=== PATIENT | male | born 1955 | race Hispanic/Latino ===

== ENCOUNTER → 2020-09-03 | Outpatient (CLI) | payer OTHER | END | disposition home or self-care (01) | LOC: SHCH 12:40 | PROVIDERS: ATTEND Internal Medicine Cardiovascular Disease | DX: I10 Essential (primary) hypertension (principal); R06.00 Dyspnea, unspecified | CPT/HCPCS: 93306; 93356 ==

== ENCOUNTER 2022-06-03 20:57 | Inpatient (IN) | payer OTHER ==
[~2022-06-03] VITALS: Ht 172.7 cm; Wt 156.4 kg
[2022-06-03 21:52] LABS: BASOPHILS % (AUTO) 0.7 % (0.0-5.0); EOSINOPHILS % (AUTO) 4.1 % (0.0-8.0); HEMATOCRIT 48.4 % (42-54); LYMPHOCYTES % (AUTO) 16.4 % (21.0-51.0); MEAN CORPUSCULAR HEMOGLOBIN 31.3 pg (27.0-33.0); MEAN CORPUSCULAR HGB CONC 32.2 g/dL (32.0-36.0); MONOCYTES % (AUTO) 6.1 % (3.0-13.0); NEUTROPHILS % (AUTO) 72.2 % (40.0-77.0); PLATELET COUNT (AUTO) 124 K/uL (130-400); RED BLOOD CELL COUNT(AUTO) 4.99 MIL/uL (4.50-6.20); RED CELL DISTRIBUTION WIDTH 13.3 % (11.0-15.5); WHITE BLOOD COUNT (AUTO) 8.5 K/uL (4.8-10.8)
[2022-06-03 22:02] LABS: PROTHROMBIN TIME 10.9 SEC (9.6-11.6)
[2022-06-03 22:04] LABS: PARTIAL THROMBOPLASTIN TIME 28.5 SEC (26.3-35.5)
[2022-06-03 22:05] LABS: CREATININE 1.2 mg/dL (0.5-1.5); POTASSIUM 4.3 mmol/L (3.5-5.1)
[2022-06-03 22:09] LABS: ALBUMIN 3.8 g/dL (3.5-5.0); TOTAL PROTEIN, SERUM 7.4 g/dL (6.0-8.3); URIC ACID 6.7 mg/dL (2.6-7.2)
[2022-06-03 22:15] LABS: B-TYPE NATRIURETIC PEPTIDE 25 pg/mL (0-100)
[2022-06-03 23:50] VITALS: BP 148/83
[2022-06-04] VITALS (7 sets, daily range): BP systolic 118–156; BP diastolic 71–92
[2022-06-04] MEDS ORDERED: AMLO-257 PO (00:33)
[2022-06-04] MEDS ORDERED: OMEP20CA12 PO (00:33)
[2022-06-04] MEDS ORDERED: FLUT1AER IH (00:33)
[2022-06-04] MEDS ORDERED: PIOG15TA66 PO (00:33)
[2022-06-04] MEDS ORDERED: AMIL5TAB8 PO (00:33)
[2022-06-04] MEDS ORDERED: CELE200 PO (00:33)
[2022-06-04] MEDS ORDERED: METF-526 PO (00:33)
[2022-06-04] MEDS ORDERED: MULT-1203 PO (00:33)
[2022-06-04] MEDS ORDERED: TAMS-1 PO (00:33)
[2022-06-04] MEDS ORDERED: GABA100C PO (00:33)
[2022-06-04] MEDS ORDERED: METO25TA6 PO (00:33)
[2022-06-04] MEDS ORDERED: MONT-46 PO (00:33)
[2022-06-04] MEDS ORDERED: VITA-395 PO (00:33)
[2022-06-04] MEDS ORDERED: DULA0.75 SQ (00:33)
[2022-06-04 06:04] LABS: CHOLESTEROL 142 mg/dL (<200); HDL CHOLESTEROL 36 mg/dL (29-71); LDL DIRECT 91 mg/dL (0-99); TRIGLYCERIDES 134 mg/dL (30-200)
[2022-06-04] MEDS ORDERED: FLUT16H NASAL (06:31)
[2022-06-04] MEDS ORDERED: METFORMIN HCL 500 MG TAB.SR.24H PO SCH (08:00)
[2022-06-04] MEDS: AMLODIPINE 5 MG TAB PO SCH (08:56)
[2022-06-04] MEDS: METOPROLOL TARTRATE 25 MG TAB PO SCH ×2 (08:56→19:33)
[2022-06-04] MEDS: GABAPENTIN 100 MG CAPSULE PO SCH ×2 (08:56→19:33)
[2022-06-04] MEDS: PIOGLITAZONE 15MG TAB PO SCH (08:57)
[2022-06-04] MEDS ORDERED: AMILORIDE 5MG TAB PO SCH (09:00)
[2022-06-04] MEDS ORDERED: MAGNESIUM 2GM PREMIX 50ML 50 ML IV PRN (16:30)
[2022-06-04] MEDS: INSULIN HUMULIN R 100 UNIT/ML 3ML SQ SCH ×2 (16:30→19:45)
[2022-06-04] MEDS ORDERED: GLUCAGON 1MG KIT 1 MG ML IM PRN (16:30)
[2022-06-04] MEDS ORDERED: LIDOCAINE HCL-MPF 1% 2ML VIAL IV PRN (16:30)
[2022-06-04] MEDS ORDERED: POTASSIUM CHLORIDE 20MEQ/100ML 100 ML IV PRN (16:30)
[2022-06-04] MEDS ORDERED: DEXTROSE 50%-WATER 50 ML DISP.SYRIN IV PRN (16:30)
[2022-06-04] MEDS ORDERED: ONDANSETRON 4MG INJ IVP PRN (16:30)
[2022-06-04] MEDS ORDERED: POTASSIUM CHLORIDE 10% ELIXIR 20 MEQ/15 ML UDCUP PO PRN (16:30)
[2022-06-04] MEDS ORDERED: ACETAMINOPHEN 325 MG TAB PO PRN (16:30)
[2022-06-04] MEDS ORDERED: ENOXAPARIN SODIUM 40 MG/0.4 ML SYRINGE SQ SCH (16:30)
[2022-06-04] MEDS ORDERED: KCL 20 MEQ ERTAB PO PRN (16:30)
[2022-06-04 16:34] LABS: HEMOGLOBIN A1C 7.4 % (4.0-6.0)
[2022-06-04] MEDS: FUROSEMIDE 20MG VIAL IV SCH (18:29)
[2022-06-04] MEDS ORDERED: MONTELUKAST SODIUM 10 MG TAB ONE (19:18)
[2022-06-04] MEDS: FAMOTIDINE 20MG TAB PO SCH (19:33)
[2022-06-04] MEDS: MONTELUKAST SODIUM 10 MG TAB PO SCH (19:33)
[2022-06-05 03:52] VITALS: BP 125/77
[2022-06-05] MEDS: FUROSEMIDE 20MG VIAL IV SCH (04:30)
[2022-06-05] MEDS: INSULIN HUMULIN R 100 UNIT/ML 3ML SQ SCH ×4 (05:18→19:59)
[2022-06-05 08:00] VITALS: BP_SYST 126; BP_SYST 149; BP_DIAS 66; BP_DIAS 78
[2022-06-05] MEDS: FLUTICASONE/VILANTEROL 1 EACH AER.POW.BA IH SCH (08:41)
[2022-06-05] MEDS: FLUTICASONE PROPIONATE 50MCG/SPRAY 16 GM BOTTLE EN SCH (08:41)
[2022-06-05] MEDS: METOPROLOL TARTRATE 25 MG TAB PO SCH ×2 (08:50→19:56)
[2022-06-05] MEDS: TAMSULOSIN HCL 0.4 MG CAP.ER.24H PO SCH (08:55)
[2022-06-05] MEDS: PIOGLITAZONE 15MG TAB PO SCH (08:55)
[2022-06-05] MEDS: AMLODIPINE 5 MG TAB PO SCH (08:56)
[2022-06-05] MEDS: FAMOTIDINE 20MG TAB PO SCH ×2 (08:56→19:57)
[2022-06-05] MEDS: VITAMIN E 400 UNIT CAPSULE PO SCH (08:56)
[2022-06-05] MEDS: GABAPENTIN 100 MG CAPSULE PO SCH ×2 (08:56→19:57)
[2022-06-05] MEDS: MULTIVITAMIN TABLET PO SCH (08:56)
[2022-06-05] MEDS ORDERED: AMLODIPINE 5 MG TAB PO SCH (09:00)
[2022-06-05] MEDS: ENOXAPARIN SODIUM 40 MG/0.4 ML SYRINGE SQ SCH (09:00)
[2022-06-05] MEDS ORDERED: AMILORIDE 5MG TAB PO SCH (09:00)
[2022-06-05 12:00] VITALS: BP 113/68
[2022-06-05] MEDS ORDERED: IOHEXOL 350 MG/ML 100ML INFUS..BTL IV ONE (15:23)
[2022-06-05 16:00] VITALS: BP 131/67
[2022-06-05] MEDS: MONTELUKAST SODIUM 10 MG TAB PO SCH (19:57)
[2022-06-05 20:34] VITALS: BP 144/74
[2022-06-06] VITALS (7 sets, daily range): BP systolic 123–150; BP diastolic 59–90
[2022-06-06] MEDS: INSULIN HUMULIN R 100 UNIT/ML 3ML SQ SCH ×4 (05:37→20:21)
[2022-06-06] MEDS: MULTIVITAMIN TABLET PO SCH (08:29)
[2022-06-06] MEDS: FLUTICASONE PROPIONATE 50MCG/SPRAY 16 GM BOTTLE EN SCH (08:29)
[2022-06-06] MEDS: TAMSULOSIN HCL 0.4 MG CAP.ER.24H PO SCH (08:30)
[2022-06-06] MEDS: VITAMIN E 400 UNIT CAPSULE PO SCH (08:30)
[2022-06-06] MEDS: FLUTICASONE/VILANTEROL 1 EACH AER.POW.BA IH SCH (08:30)
[2022-06-06] MEDS: AMLODIPINE 5 MG TAB PO SCH (08:31)
[2022-06-06] MEDS: FAMOTIDINE 20MG TAB PO SCH ×2 (08:31→19:38)
[2022-06-06] MEDS: METOPROLOL TARTRATE 25 MG TAB PO SCH ×2 (08:31→19:38)
[2022-06-06] MEDS: GABAPENTIN 100 MG CAPSULE PO SCH ×2 (08:31→19:38)
[2022-06-06] MEDS: PIOGLITAZONE 15MG TAB PO SCH (08:32)
[2022-06-06] MEDS: ENOXAPARIN SODIUM 40 MG/0.4 ML SYRINGE SQ SCH (09:00)
[2022-06-06] MEDS: MONTELUKAST SODIUM 10 MG TAB PO SCH (19:38)
[2022-06-07 03:46] VITALS: BP 125/90
[2022-06-07] MEDS: INSULIN HUMULIN R 100 UNIT/ML 3ML SQ SCH ×4 (05:38→20:35)
[2022-06-07 08:00] VITALS: BP 154/93
[2022-06-07] MEDS: FLUTICASONE PROPIONATE 50MCG/SPRAY 16 GM BOTTLE EN SCH (08:21)
[2022-06-07] MEDS: FLUTICASONE/VILANTEROL 1 EACH AER.POW.BA IH SCH (08:21)
[2022-06-07] MEDS: GABAPENTIN 100 MG CAPSULE PO SCH ×2 (08:23→19:53)
[2022-06-07] MEDS: TAMSULOSIN HCL 0.4 MG CAP.ER.24H PO SCH (08:24)
[2022-06-07] MEDS: PIOGLITAZONE 15MG TAB PO SCH (08:24)
[2022-06-07] MEDS: MULTIVITAMIN TABLET PO SCH (08:25)
[2022-06-07] MEDS: VITAMIN E 400 UNIT CAPSULE PO SCH (08:26)
[2022-06-07] MEDS: FAMOTIDINE 20MG TAB PO SCH ×2 (08:26→19:53)
[2022-06-07] MEDS: AMLODIPINE 5 MG TAB PO SCH (08:26)
[2022-06-07] MEDS: METOPROLOL TARTRATE 25 MG TAB PO SCH ×2 (08:26→19:53)
[2022-06-07] MEDS: ENOXAPARIN SODIUM 40 MG/0.4 ML SYRINGE SQ SCH (08:34)
[2022-06-07 12:00] VITALS: BP 106/66
[2022-06-07 16:00] VITALS: BP 106/80
[2022-06-07] MEDS ORDERED: ENOXAPARIN SODIUM 40 MG/0.4 ML SYRINGE SQ ONE (16:30)
[2022-06-07 16:49] LABS: HEMATOCRIT 46.8 % (42-54); MEAN CORPUSCULAR HEMOGLOBIN 31.1 pg (27.0-33.0); MEAN CORPUSCULAR HGB CONC 32.5 g/dL (32.0-36.0); MEAN CORPUSCULAR VOLUME 95.7 fL (79-99); RED BLOOD CELL COUNT(AUTO) 4.89 MIL/uL (4.50-6.20); RED CELL DISTRIBUTION WIDTH 13.2 % (11.0-15.5); WHITE BLOOD COUNT (AUTO) 6.3 K/uL (4.8-10.8)
[2022-06-07 16:59] LABS: CREATININE 1.3 mg/dL (0.5-1.5); POTASSIUM 4.3 mmol/L (3.5-5.1)
[2022-06-07 17:02] LABS: MAGNESIUM 2.1 mg/dL (1.80-2.40); PHOSPHORUS 3.9 mg/dL (2.5-4.9)
[2022-06-07 17:12] LABS: THYROID STIMULATING HORMONE 3.17 uIU/mL (0.36-3.74); URIC ACID 8.4 mg/dL (2.6-7.2)
[2022-06-07] MEDS ORDERED: ACETAZOLAMIDE SODIUM 500 MG VIAL IV SCH (17:30)
[2022-06-07 19:40] VITALS: BP 141/67
[2022-06-07] MEDS: MONTELUKAST SODIUM 10 MG TAB PO SCH (19:53)
[2022-06-07 23:00] VITALS: BP 133/76
[2022-06-08] VITALS (11 sets, daily range): BP systolic 105–136; BP diastolic 63–91
[2022-06-08] MEDS: INSULIN HUMULIN R 100 UNIT/ML 3ML SQ SCH ×2 (05:21→11:47)
[2022-06-08 05:25] LABS: MEAN CORPUSCULAR HEMOGLOBIN 31.2 pg (27.0-33.0); MEAN CORPUSCULAR HGB CONC 32.4 g/dL (32.0-36.0); MEAN CORPUSCULAR VOLUME 96.2 fL (79-99); RED BLOOD CELL COUNT(AUTO) 4.78 MIL/uL (4.50-6.20); RED CELL DISTRIBUTION WIDTH 13.2 % (11.0-15.5)
[2022-06-08 05:43] LABS: CREATININE 1.3 mg/dL (0.5-1.5); PHOSPHORUS 4.5 mg/dL (2.5-4.9)
[2022-06-08] MEDS ORDERED: FENTANYL CITRATE PF 50 MCG/1 ML 2ML VIAL ONE (07:33)
[2022-06-08] MEDS ORDERED: MIDAZOLAM HCL 1 MG/ML 2ML VIAL ONE (07:33)
[2022-06-08] MEDS ORDERED: SODIUM BICARB 50MEQ 50ML VIAL 50 ML ONE (07:33)
[2022-06-08] MEDS ORDERED: LIDOCAINE HCL 400MG/20ML VIAL ONE (07:33)
[2022-06-08] MEDS ORDERED: EMPA10TA PO (08:10)
[2022-06-08] MEDS ORDERED: FURO40TA5 PO (08:10)
[2022-06-08] MEDS: ENOXAPARIN SODIUM 40 MG/0.4 ML SYRINGE SQ SCH (09:00)
[2022-06-08] MEDS ORDERED: ENOXAPARIN SODIUM 40 MG/0.4 ML SYRINGE SQ SCH (09:00)
[2022-06-08] MEDS: GABAPENTIN 100 MG CAPSULE PO SCH (10:14)
[2022-06-08] MEDS: AMLODIPINE 5 MG TAB PO SCH (10:14)
[2022-06-08] MEDS: METOPROLOL TARTRATE 25 MG TAB PO SCH (10:14)
[2022-06-08] MEDS: FAMOTIDINE 20MG TAB PO SCH (10:14)
[2022-06-08] MEDS: MULTIVITAMIN TABLET PO SCH (10:15)
[2022-06-08] MEDS: FLUTICASONE/VILANTEROL 1 EACH AER.POW.BA IH SCH (10:34)
[2022-06-08] MEDS: FLUTICASONE PROPIONATE 50MCG/SPRAY 16 GM BOTTLE EN SCH (10:34)
[2022-06-08] MEDS: VITAMIN E 400 UNIT CAPSULE PO SCH (10:35)
[2022-06-08] MEDS: TAMSULOSIN HCL 0.4 MG CAP.ER.24H PO SCH (10:35)
== END 2022-06-08 16:00 | disposition home or self-care (01) | DRG 286 ==
LOC: EDH 20:57 → DIRECT 21:28 → 4DH 23:37
PROVIDERS: ADMIT Internal Medicine; ATTEND Internal Medicine
PROC: 4A023N6 Measurement of Cardiac Sampling and Pressure, Right Heart, Percutaneous Approach (ICD-10-PCS; principal; 2022-06-08)
PROC: B2111ZZ Fluoroscopy of Multiple Coronary Arteries using Low Osmolar Contrast (ICD-10-PCS; 2022-06-08)
DX: I11.0 Hypertensive heart disease with heart failure (principal); I50.33 Acute on chronic diastolic (congestive) heart failure; J96.01 Acute respiratory failure with hypoxia; Z68.43 Body mass index [BMI] 50.0-59.9, adult; Z20.822 Contact with and (suspected) exposure to COVID-19; E66.01 Morbid (severe) obesity due to excess calories; K74.60 Unspecified cirrhosis of liver; G47.33 Obstructive sleep apnea (adult) (pediatric); E78.5 Hyperlipidemia, unspecified; D69.6 Thrombocytopenia, unspecified; I25.10 Atherosclerotic heart disease of native coronary artery without angina pectoris; Z79.84 Long term (current) use of oral hypoglycemic drugs; Z82.49 Family history of ischemic heart disease and other diseases of the circulatory system; Z91.199 Patient's noncompliance with other medical treatment and regimen due to unspecified reason; Z83.3 Family history of diabetes mellitus
CPT/HCPCS: 36415; 71045; 71275; 80048; 80053; 80061; 82948; 83036; 83735; 83880; 84100; 84443; 84484; 84550; 85025; 85027; 85610; 85730; 87635; 93005; 93306; 93451; C1894; G0378; J1120; J1650; J1815; J1940; J2250; J3010; J3490; Q9967

== ENCOUNTER → 2022-06-10 | Outpatient (CLI) | payer OTHER ==
[~2022-06-10] MED LIST: AMIL5TAB8 PO; AMLO-257 PO; CELE200 PO; DULA0.75 SQ; EMPA10TA PO; FLUT16H NASAL; FLUT1AER IH; FURO40TA5 PO; GABA100C PO; METF-526 PO; METO25TA6 PO; MONT-46 PO; MULT-1203 PO; OMEP20CA12 PO; TAMS-1 PO; VITA-395 PO
[2022-06-10 12:39] LABS: CREATININE 1.3 mg/dL (0.5-1.5)
== END | disposition home or self-care (01) ==
LOC: LAB 11:29
PROVIDERS: ATTEND Internal Medicine Cardiovascular Disease
DX: I11.0 Hypertensive heart disease with heart failure (principal); I50.32 Chronic diastolic (congestive) heart failure
CPT/HCPCS: 36415; 80048; 83735

== ENCOUNTER 2022-07-01 10:40 | Emergency (ER) | payer OTHER ==
[~2022-07-01] VITALS: Ht 172.7 cm; Wt 153.3 kg
[2022-07-01 11:10] LABS: BASOPHILS % (AUTO) 0.9 % (0.0-5.0); EOSINOPHILS % (AUTO) 3.4 % (0.0-8.0); HEMATOCRIT 48.7 % (42-54); LYMPHOCYTES % (AUTO) 16.6 % (21.0-51.0); MEAN CORPUSCULAR HEMOGLOBIN 30.9 pg (27.0-33.0); MEAN CORPUSCULAR HGB CONC 32.9 g/dL (32.0-36.0); MEAN CORPUSCULAR VOLUME 94.2 fL (79-99); MONOCYTES % (AUTO) 7.4 % (3.0-13.0); NEUTROPHILS % (AUTO) 71.4 % (40.0-77.0); PLATELET COUNT (AUTO) 120 K/uL (130-400); RED BLOOD CELL COUNT(AUTO) 5.17 MIL/uL (4.50-6.20); RED CELL DISTRIBUTION WIDTH 13.2 % (11.0-15.5)
[2022-07-01 11:18] LABS: CREATININE 1.2 mg/dL (0.5-1.5); POTASSIUM 4.1 mmol/L (3.5-5.1)
[2022-07-01 11:22] LABS: ALBUMIN 3.7 g/dL (3.5-5.0); TOTAL PROTEIN, SERUM 7.4 g/dL (6.0-8.3)
[2022-07-01 11:23] LABS: APPEARANCE,URINE CLEAR (CLEAR); BILIRUBIN,URINE NEGATIVE (NEGATIVE); COLOR,URINE COLORLESS (YELLOW); GLUCOSE, URINE (UA) 500 mg/dL (NEGATIVE); KETONES,URINE NEGATIVE (NEGATIVE); LEUKOCYTE ESTERASE ,URINE NEGATIVE Leu/uL (NEGATIVE); NITRATE,URINE NEGATIVE (NEGATIVE); OCCULT BLOOD,URINE NEGATIVE (NEGATIVE); PROTEIN,URINE NEGATIVE (NEGATIVE); UROBILINOGEN,URINE 0.2 mg/dL (0.2-1.0)
[2022-07-01 11:43] LABS: RBC,URINE 0-1 /HPF (0-1); SQUAMOUS EPITHELIAL CELL,UR RARE /HPF (0-2); WBC,URINE 0-1 /HPF (0-1)
[2022-07-01 15:38] VITALS: BP 120/79
== END 2022-07-01 15:39 | disposition home or self-care (01) ==
LOC: EDH 10:40
DX: R07.89 Other chest pain (principal); I10 Essential (primary) hypertension; E11.9 Type 2 diabetes mellitus without complications; Z79.84 Long term (current) use of oral hypoglycemic drugs; Z79.899 Other long term (current) drug therapy; Z90.49 Acquired absence of other specified parts of digestive tract; Z98.890 Other specified postprocedural states; Z88.0 Allergy status to penicillin
CPT/HCPCS: 36415; 71045; 80053; 81001; 83880; 84484; 85025; 93005

== ENCOUNTER 2023-04-02 11:49 | Emergency (ER) | payer OTHER ==
[~2023-04-02] VITALS: Ht 172.7 cm; Wt 148.3 kg
[2023-04-02 12:20] VITALS: BP 113/48; PULSE 70; RESP 14; O2SAT 94
[2023-04-02] MEDS ORDERED: ACETAMINOPHEN 500 MG TABLET PO ONE (12:30)
[2023-04-02] MEDS ORDERED: CEPH500B PO (12:52)
[2023-04-02] MEDS ORDERED: IBUP-2077 PO (12:52)
[2023-04-02] MEDS: CEFAZOLIN SODIUM 2 GM VIAL IVPB SCH ×2 (12:57→13:01)
== END 2023-04-02 13:34 | disposition home or self-care (01) ==
LOC: EDH 11:49
DX: S68.114A Complete traumatic metacarpophalangeal amputation of right ring finger, initial encounter (principal); E11.9 Type 2 diabetes mellitus without complications; I10 Essential (primary) hypertension; Z79.51 Long term (current) use of inhaled steroids; Z79.84 Long term (current) use of oral hypoglycemic drugs; Z79.899 Other long term (current) drug therapy; Z88.0 Allergy status to penicillin; Z90.49 Acquired absence of other specified parts of digestive tract; X58.XXXA Exposure to other specified factors, initial encounter; Y93.89 Activity, other specified; Y92.89 Other specified places as the place of occurrence of the external cause; Y99.8 Other external cause status
CPT/HCPCS: 99284; 96365; 73130; J0690